=== PATIENT | female | born 1975 | race Caucasian/White ===

== ENCOUNTER → 2017-08-07 | Emergency (ER) | payer OTHER ==
[~2017-08-07] VITALS: Ht 162.6 cm; Wt 86.2 kg
[~2017-08-07] MED LIST: PERCOCET 10-321 EACH; TRAMADOL HCL50 MG
== END | disposition home or self-care (01) ==
LOC: ER 17:51
DX: S52.182A Other fracture of upper end of left radius, initial encounter for closed fracture (principal); S50.12XS Contusion of left forearm, sequela; W18.39XS Other fall on same level, sequela